=== PATIENT | female | born 1970 ===

== ENCOUNTER 2018-05-13 13:47 | Emergency (ER) | payer OTHER ==
[2018-05-13 14:00] VITALS: BMI 34.1
[2018-05-13 14:01] VITALS: TEMP 98; O2SAT 99
--- NOTE | 2018-05-13 14:39 | ED PDOC ---
Upper Extremity Pain/Injury Time Seen by Provider: 05/13/18 14:08 Chief Complaint (Nursing): Upper Extremity Problem/Injury Chief Complaint (Provider): Upper Extremity Problem/Injury History Per: Patient History/Exam Limitations: no limitations Onset/Duration Of Symptoms: Days (x2 days ago) Current Symptoms Are (Timing): Still Present Additional Complaint(s): Fabi Willis is a 48 year old female with no past medical history, who presents to the emergency department after sustaining a fall injury to the right wrist and left arm, onset x2 days ago. Patient states she tripped over something and fell on her hands forward and then landed on her left side. She states she was seen at the clinic after the injury and was given Naprosyn. Patient reports that she did not hit her head and the pain is located in her left arm and right wrist. PMD: No provider Past Medical History Reviewed: Historical Data, Nursing Documentation, Vital Signs Vital Signs: Last Vital Signs Temp 98 F 05/13/18 14:00 Pulse 62 05/13/18 14:00 Resp 20 05/13/18 14:00 BP 131/71 05/13/18 14:00 Pulse Ox 99 05/13/18 14:00 - Medical History PMH: No Chronic Diseases - Surgical History Surgical History: No Surg Hx - Family History Family History: States: Unknown Family Hx - Allergies Allergies/Adverse Reactions: Allergies Allergy/AdvReac Type Severity Reaction Status Date / Time No Known Allergies Allergy Verified 05/13/18 14:00 Review of Systems ROS Statement: Except As Marked, All Systems Reviewed And Found Negative Musculoskeletal: Positive for: Arm Pain (left ), Other (right wrist ) Neurological: Negative for: Headache Physical Exam - Reviewed Nursing Documentation Reviewed: Yes Vital Signs Reviewed: Yes - Physical Exam Appears: Positive for: Non-toxic, No Acute Distress Head Exam: Positive for: ATRAUMATIC, NORMOCEPHALIC Skin: Positive for: Normal Color Cardiovascular/Chest: Positive for: Regular Rate, Rhythm. Negative for: Murmur Respiratory: Positive for: Normal Breath Sounds. Negative for: Respiratory Distress Back: Positive for: Normal Inspection Extremity: Positive for: Normal ROM, Tenderness (left elbow and lateral aspect of right wrist ). Negative for: Deformity, Swelling, Other (erythema) Neurologic/Psych: Positive for: Alert, Oriented - ECG O2 Sat by Pulse Oximetry: 99 (RA) Pulse Ox Interpretation: Normal Medical Decision Making Medical Decision Making: Time: 14:48 Impression: Musculoskeletal pain status post fall Plan: --Motrin 600 mg PO --Left elbow and right wrist x-ray Scribe Attestation: Documented by Jean Bonner, acting as a scribe for Shweta Dennis MD. Provider Scribe Attestation: All medical record entries made by the Scribe were at my direction and p ersonally dictated by me. I have reviewed the chart and agree that the record accurately reflects my personal performance of the history, physical exam, medical decision making, and the department course for this patient. I have also personally directed, reviewed, and agree with the discharge instructions and disposition. Disposition - Disposition Forms: [email or web address] (Albanian)
--- NOTE | 2018-05-13 15:36 | ED PDOC ---
- ECG O2 Sat by Pulse Oximetry: 99 (RA) Pulse Ox Interpretation: Normal Medical Decision Making Medical Decision Making: Time: 15:20 -- Patient endorsed to me by Dr. Dennis. Patient with a mechanical fall with left elbow and right wrist pain -- Patient in for X-rays. -- Reassess patient. Most likely discharge home. 16:27 Wrist x-ray FINDINGS: BONES: Normal. No fracture. JOINTS: Normal. No dislocation. SOFT TISSUES: Normal. OTHER FINDINGS: None. IMPRESSION: Normal right wrist radiographs. elbow X-ray FINDINGS: BONES: Normal. No fracture. JOINTS: Normal. No osteoarthritis. SOFT TISSUES: Normal. JOINT EFFUSION: None. OTHER FINDINGS: None IMPRESSION: Unremarkable radiographs of the left elbow. 16:55 Patient's x-rays show no obvious fracture or abnormality. Patient has tenderness over snuff box, can not eliminate possible scaphoid fracture. Thumb spica splint has been placed and patient was given referral for orthopedics. Scribe Attestation: Documented by Abram Greenberg, acting as a scribe for Carmen Brewer MD. Provider Scribe Attestation: All medical record entries made by the Scribe were at my direction and personally dictated by me. I have reviewed the chart and agree that the record accurately reflects my personal performance of the history, physical exam, medical decision making, and the department course for this patient. I have also personally directed, reviewed, and agree with the discharge instructions and disposition. Disposition - Clinical Impression Clinical Impression: Wrist pain, acute, Scaphoid fracture of wrist - POA Present On Arrival: None - Disposition Referrals: Juan Grullon MD [Staff Provider] - Disposition: Routine/Home Disposition Time: 16:45 Condition: IMPROVED Additional Instructions: Take Tylenol or Motrin for mild pain. Take Percocet only for severe pain. Follow up with orthopedics in 2 to 5 days. Return to the emergency department if symptoms worsen or if new symptoms develop. Prescriptions: oxyCODONE/Acetaminophen [Percocet 5/325 mg Tab] 1 ea PO Q6 #10 tab Instructions: Wrist Fracture (DC) Forms: [employer] (Yi), [employer] (Kosovan), [facility] ED School/Work Excuse Print Language: [place]
--- NOTE | 2018-05-13 16:31 | RAD ---
Date of service: 05/13/2018 PROCEDURE: Radiographs of the left elbow. HISTORY: Fall COMPARISON: No prior. FINDINGS: BONES: Normal. No fracture. JOINTS: Normal. No osteoarthritis. SOFT TISSUES: Normal. JOINT EFFUSION: None. OTHER FINDINGS: None IMPRESSION: Unremarkable radiographs of the left elbow.
--- NOTE | 2018-05-13 16:31 | RAD ---
Date of service: 05/13/2018 PROCEDURE: Right Wrist Radiographs. HISTORY: Fall COMPARISON: None. FINDINGS: BONES: Normal. No fracture. JOINTS: Normal. No dislocation. SOFT TISSUES: Normal. OTHER FINDINGS: None. IMPRESSION: Normal right wrist radiographs.
[2018-05-13] MEDS ORDERED: Oxycodone/Acetaminophen 5/325 mg Tab PO STA (16:54)
[2018-05-13] MEDS ORDERED: Oxycodone/Acetaminophen 5/325 mg Tab ONE (17:10)
[2018-05-13 18:21] VITALS: BP 130/70; PULSE 64; RESP 16
== END 2018-05-13 18:22 | disposition home or self-care (01) ==
LOC: H.ER 13:47
DX: S62.002A Unspecified fracture of navicular [scaphoid] bone of left wrist, initial encounter for closed fracture (principal); W19.XXXA Unspecified fall, initial encounter; Y99.0 Civilian activity done for income or pay